=== PATIENT | male | born 1970 | race Caucasian/White ===

== ENCOUNTER 2018-06-26 23:51 | Emergency (ER) | payer OTHER ==
[~2018-06-26] VITALS: Ht 185.4 cm; Wt 69.3 kg
[2018-06-27] MEDS ORDERED: ATOR20TA66 PO (01:08)
[2018-06-27] MEDS ORDERED: LISI1TAB11 PO (01:08)
[2018-06-27] MEDS ORDERED: TETanus/Pertussis (Acell)/Diphther VAC/PF (Tdap-Adult) 0.5ml syringe IM ONE (01:10)
[2018-06-27] MEDS ORDERED: LIDOcaine 1% w/epiNEPHrine 1:200,000 30ml vial IM ONE ×2 (01:10→01:20)
--- NOTE | 2018-06-27 01:27 | NUR ---
Pt admits to 6 glasses of wine and 1 hard shot of [place].
[2018-06-27 02:47] VITALS: BP 150/90
== END 2018-06-27 02:49 | disposition home or self-care (01) ==
LOC: ER 23:52
DX: S01.01XA Laceration without foreign body of scalp, initial encounter (principal); S06.9X1A Unspecified intracranial injury with loss of consciousness of 30 minutes or less, initial encounter; V43.54XA Car driver injured in collision with van in traffic accident, initial encounter; Y93.89 Activity, other specified; Y92.488 Other paved roadways as the place of occurrence of the external cause; Y99.8 Other external cause status
CPT/HCPCS: 12002; 70450; 90471; 90715; 99284; J3490